=== PATIENT | male | born 1955 | race Caucasian/White ===

== ENCOUNTER 2017-02-16 06:06 | Inpatient (IN) | payer BC ==
--- NOTE | 2017-02-10 21:20 | HP ---
PREOPERATIVE HISTORY AND PHYSICAL: DATE OF ADMISSION/SURGERY: 02/16/17 DATE OF OFFICE VISIT: 02/01/17 ATTENDING PHYSICIAN/SURGEON: Dr. Jairon Meza. (DICTATED BY NAKUL PANCHAL) PROCEDURE: Right total knee replacement. CHIEF COMPLAINT: Right knee pain. HISTORY OF PRESENT ILLNESS: Kuldip Rucker is a 61-year-old male, who has a longstanding history of severe end-stage osteoarthritis of the right knee. He has tried and failed conservative treatment options including bracing, NSAIDs, physical therapy, and cortisone injection. He would like to proceed with right total knee replacement. This is scheduled for 02/16/[address] Meza and risks and benefits have been discussed with the patient. All of his questions have been answered and he would like to proceed with right total knee replacement. PAST MEDICAL HISTORY: 1. BPH. 2. Coronary arteriosclerosis. 3. Hyperlipidemia. 4. Kidney stone. PAST SURGICAL HISTORY: 1. Right foot surgery. 2. Back diskectomy. 3. Left carpal tunnel release. 4. Coronary stent. 5. Cataract bilaterally. 6. Knee arthroscopy bilaterally. MEDICATIONS: 1. Atorvastatin. 2. Glucosamine. ALLERGIES: No known drug allergies. FAMILY HISTORY: Unknown. 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 He denies tobacco, alcohol, or recreational drug use. REVIEW OF SYSTEMS: A 14-point review of systems was reviewed with the patient. It is positive for bilateral knee pain and left heel spur, but otherwise is negative for known anesthesia problems, negative for history of DVT. Negative for MRSA and hep C and HIV. The rest of the review of systems is negative and noncontributory. PHYSICAL EXAMINATION GENERAL: Well-developed, well-nourished, 61-year-old male in no acute distress. VITAL SIGNS: Height is 73, weight 225 pounds. Pulse 70, blood pressure is 142/ 89, temperature 94.9. BMI of 29.7. HEENT: Head is normocephalic, atraumatic. NECK: Supple with no palpable lymph nodes. PULMONARY: Lungs clear to auscultation bilaterally. No wheezes, rales, or rhonchi. CARDIO: Regular rate and rhythm. S1, S2. No murmurs, rubs, or gallops. No edema. ABDOMEN: Soft, nontender. Positive bowel sounds throughout. NEUROLOGIC: Alert and oriented x3. Cranial nerves II through XII are grossly intact. Sensation intact to light touch. MUSCULOSKELETAL: Right knee has range of motion from 10 degrees to 105 degrees of motion. There is slight medial tenderness. Nontender anteriorly, laterally, and posteriorly. MCL and LCL are stable. Thigh and calf are soft. The dorsalis pedis and posterior tibialis are 2+ bilaterally. DIAGNOSTIC STUDIES: X-rays from 12/30/16 did show [id number] osteoarthritic changes in the medial compartment of the right knee. IMPRESSION: A 61-year-old with right knee severe osteoarthritis. PLAN: The patient is scheduled to undergo a right total knee replacement with Dr. Meza on 02/16/17. He will return to the office 10 to 14 days postoperative for followup and suture removal. A prescription was prescribed to the patient's pharmacy for postoperative pain management. NAKUL PANCHAL [id number]/[facility] #: [id number] INOCENCIO
[~2017-02-16 06:06] MED LIST: Buffered Lidocaine 0.9% SYRIN* 5 ML/SYR SYRINGE ONE; Famotidine IV* 10 MG/ML 2 ML (20 mg) IV ONE; Famotidine IV* 10 MG/ML 2 ML (20 mg) ONE; Gabapentin CAP(*) 100 MG ONE; Gabapentin CAP(*) 300 MG ONE; Gabapentin CAP(*) 300 MG PO ONE; Metoclopramide TAB* 10 MG ONE; Metoclopramide TAB* 10 MG PO ONE; ceFAZolin 2 GM PREMIX(*) 2 GM/50 ML BAG IVPB ONE
[2017-02-16] MEDS ORDERED: Ketorolac INJ* 30 MG/ML 1 ML VIAL ONE (06:52)
[2017-02-16] MEDS ORDERED: Morphine PF AMP (0.5MG/ML)* 5 MG/10 ML AMP ONE (06:52)
[2017-02-16] MEDS ORDERED: Midazolam* 1 MG/ML 5 ML VIAL (5 MG) ONE (06:52)
[2017-02-16] MEDS ORDERED: Bupivacaine 0.5% SDV PF* 30 ML VIAL ONE ×2 (06:52→09:35)
[2017-02-16] MEDS ORDERED: fentaNYL* 50 MCG/ML 2 ML VIAL (100 MCG VIAL) ONE (06:52)
[2017-02-16] MEDS ORDERED: Propofol* 10 MG/ML 20 ML BTL IV PUSH ONE (06:52)
[2017-02-16] MEDS ORDERED: KETAMINE HCL* 50 MG/ML 10 ML VIAL ONE (06:52)
[2017-02-16] MEDS ORDERED: Ondansetron INJ* 2 MG/ML VIAL ONE ×2 (06:52→13:49)
[2017-02-16] MEDS ORDERED: Dexamethasone IV* 4 MG/ML 1 ML (4 MG) ONE (06:52)
[2017-02-16] MEDS ORDERED: Lidocaine 2% PF * 5 ML VIAL ONE (06:52)
[2017-02-16] MEDS ORDERED: Midazolam* 1 MG/ML 2 ML VIAL (2 MG) ONE (07:42)
[2017-02-16] MEDS ORDERED: Propofol* 500 MG/50 ML BTL ONE (07:52)
[2017-02-16] MEDS ORDERED: Bupivacaine 0.5% W/EPI SDV* 30 ML VIAL ONE (07:56)
[2017-02-16] MEDS ORDERED: Phenylephrine INJ* 10 MG/ML 1 ML VIAL (10 MG) ONE (08:04)
[2017-02-16] MEDS ORDERED: fentaNYL* 50 MCG/ML 2 ML VIAL (100 MCG VIAL) IV PRN (08:33)
[2017-02-16] MEDS ORDERED: Ondansetron INJ* 2 MG/ML VIAL IV PRN ×3 (08:33→10:35)
[2017-02-16] MEDS ORDERED: EPHEDrine (Pressors)* 50 MG/ML VIAL IV PUSH PRN (08:35)
[2017-02-16] MEDS ORDERED: diPHENhydraMINE IV* 50 MG/ML 1 ml VIAL (BENADRYL) IV PRN (08:35)
[2017-02-16] MEDS ORDERED: Ketorolac INJ* 30 MG/ML 1 ML VIAL IV PRN (08:35)
[2017-02-16] MEDS ORDERED: Lactated Ringers 500 ml BAG* 500 ML IV PRN (08:35)
[2017-02-16] MEDS ORDERED: oxyCODONE/Acetamin 5/325 MG* TAB PO PRN ×3 (08:35→10:35)
[2017-02-16] MEDS ORDERED: Naloxone* 0.4 MG/ML 1 ML VIAL IV PRN (08:40)
[2017-02-16] MEDS ORDERED: Ropivacaine* 300 MG in NS 0.9% 250 ML* 240 ML EPIDURAL SCH (09:00)
[2017-02-16] MEDS ORDERED: Morphine INJ* 2 MG/ML 1 ML SYRINGE IV PRN (10:35)
[2017-02-16] MEDS ORDERED: traZODone TAB* 50 MG TAB PO PRN (10:35)
--- NOTE | 2017-02-16 11:16 | RAD ---
Indication: Status post right knee bipolar arthroplasty. 2 views of the right knee demonstrates bipolar knee arthroplasty in satisfactory position. IMPRESSION: Bipolar knee arthroplasty in satisfactory position.
--- NOTE | 2017-02-16 14:56 | OP ---
DATE OF OPERATION: 02/16/17 - ROOM #343 DATE OF : 53 SURGICAL CARE: Right knee. SURGEON: Jairon Meza MD ASSISTANTS: NAKUL Ridley; and Peyton physician's inventory assistant student. ANESTHESIOLOGIST: Drew Bucio MD. ANESTHESIA: Spinal with Duramorph and epidural IV sedation. PRE-OP DIAGNOSIS: Severe arthritis of the right knee with some varus deformity. POST-OP DIAGNOSIS: Severe arthritis of the right knee with some varus deformity. OPERATIVE PROCEDURE: Right total knee replacement. COMPONENTS UTILIZED: Huy Persona knee, size 10 femur, 38 patella, size G tibia and a 14 articular surface. COMPLICATIONS: There were no complications. DRAINS: There were no drains. BLOOD LOSS: 200 mL. REPLACEMENT: Crystalloid fluids. OPERATIVE INDICATIONS: Severe arthritis of the right knee that is no longer responsive to nonoperative care and a right total knee replacement was recommended. DESCRIPTION OF PROCEDURE: The patient was brought to the operating room and placed on the operating room table in a supine position and then into the seated position for the administration of the spinal Duramorph and epidural. He returned to the supine position. A Mejias catheter was inserted. The right lower extremity was wrapped with a proximal thigh tourniquet and following these preparations, the knee was given a preliminary chlorhexidine prep and then a final ChloraPrep with the surgical care. After prepping, draping and sealing off, we did our universal protocol time-out confirming Kuldip Rucker and a plan for right total knee replacement and we all agreed and we proceeded. The surgical care was done without tourniquet until the clean-up and cementing phase and the knee was acutely flexed with the foot on a padded foot piece. The skin incision went from the medial aspect of the tibial tubercle to two finger-breadths proximal to the superior pole of the patella. Careful hemostasis was checked and achieved throughout the case utilizing electrocautery. The skin and subcu divided down to the prepatellar bursa and the knee was entered medial parapatellar dividing the soft tissues on the tibia down to the bone just medial to the tibial tubercle going up to the joint line and to the medial aspect of the patella and dividing the quad tendon at the junction of the rectus femoris and the vastus medialis, going 4 cm proximal to the superior pole of the patella staying as close to the vastus medialis as possible for good tendon healing. The knee had clear goldish synovial fluid that was abundant. The patella was made so that it could be everted. The anteromedial soft tissues on the tibia were elevated subperiosteally going around to the MCL and then to the posterior medial corner of the knee. The remainder of the medial meniscus was removed anteriorly. The infrapatellar fat pad was carefully excised and the patella was everted. There was complete eburnation of the bone on the medial femoral condyle, medial tibial plateau, large osteophytes medial tibial plateau, intercondylar notch, trochlea and medial femoral condyle. The lateral meniscus was carefully excised and careful hemostasis was checked and achieved in the region of the lateral geniculate. Osteophytes were removed from the intercondylar notch. The ACL and PCL were uplifted from their femoral origins and the tibia was made so that it could be subluxated forward from under the femur and the PCL was carefully excised with careful hemostasis while working posteriorly, especially. The distal anterior femur was exposed subperiosteally for referencing and measuring out. The proximal tibial cut was made first. Our goal here was to have a tibial surface so that it would have a slight posterior slope and be perpendicular to the long axis of the tibia removing about a centimeter to 12 mm laterally and just a couple of millimeters medially. After this cut was complete, the femoral intramedullary drill was utilized and the femur was suctioned to discourage embolization and the femoral guide was inserted with #1 with 6 degrees of valgus and the distal femoral cut was completed. We had nice extension gap 12 mm to 14 mm at this stage. The femur was then measured for a 10 and the femoral cuts, the anterior and posterior and chamfering were completed. We then finished removal of the lateral meniscus, posterior horn medial meniscus, carefully preserving the MCL, osteophytes, posterior medial femoral condyle and lateral femoral condyle. At this stage, we had nice ligamentous balance in 90 degrees of flexion with a 12 mm to 14 mm block as well. The femur was completed with the intercondylar cutout for a size 10 with nice tight fit and anchoring holes were made. The tibia was completed for a size G. The knee was articulated and extended with a G tibia, 14 articular surface and the 10 femur with full knee extension, stable ligaments in extension, stable ligaments in 90 degrees of flexion. The femoral canal was cleaned x6 with saline, suctioned empty and then the bone plug inserted. The patella was everted and measured for a cut. The patella was cut flat, measured for a 38, three drill holes were made and these were undercut. A lateral release was not necessary. The knee was then cleaned completely in extension with pulsed saline 2 L to 3 L and cleaning the gutters posteriorly. Careful hemostasis once again checked and achieved. The leg was then exsanguinated. The tourniquet elevated to 275. The knee was then flexed, retractors were put into position and all bony surfaces were cleaned with the pulsed saline to encourage optimal cement interdigitation at the cementing phase. The cement was mixed and the components were cemented into position, patella followed by tibia followed by femur. Each component was impacted, excess cement was removed and the knee was articulated and extended during the final hardening. The tourniquet was then deflated, we checked everywhere for retained cement, we checked posteriorly. The pericapsular tissues were infiltrated with Marcaine 0.5 % with epinephrine posteromedially, medially, laterally. Careful hemostasis checked and achieved with electrocautery during the closure and several irrigations with saline during the closure. The quadriceps tendon reapproximated with interrupted #1 Polysorb in [id number] fashion down to the medial retinaculum. Two blood collection drains were brought out through superolateral suprapatellar pouch. The distal closure was done with 0 Polysorb , the bursa closed with 0 Polysorb and then 3-0 Polysorb and then more superficial subcu and then sharmaine on the skin. The skin was washed and dried and covered with Betadine soaked release after the sharmaine followed by sterile gauze, sterile Webril, cryotherapy cuff, ABD pads, further Webril, and then a 6- inch Antony bandage loosely applied. The knee was extended completely and flexed 6 to 8 times during closure and it was flexed completely. The patient was then returned to the hospital bed in the recovery room in stable and satisfactory condition, having tolerated the procedure very well. [id number]/[facility] #: [id number] MTDD
[2017-02-16] MEDS: ceFAZolin VIAL(*) 1 GM in NS 0.9% 50 ML* 50 ML IVPB SCH ×3 (15:41→20:00)
[2017-02-16] MEDS ORDERED: DiMENhydriNATE IV* 50 MG/ML VIAL IV PUSH ONE (19:00)
[2017-02-16] MEDS ORDERED: Scopolamine 1.5 mg* PATCH TRANSDERM SCH (19:00)
[2017-02-16] MEDS: Docusate CAP* 100 MG PO SCH (21:48)
[2017-02-16] MEDS: Atorvastatin* 40 MG TAB PO SCH (21:48)
[2017-02-16] MEDS: Ferrous Sulfate TAB* 325 MG PO SCH (21:49)
[2017-02-17] MEDS ORDERED: diPHENhydraMINE IV* 50 MG/ML 1 ml VIAL (BENADRYL) IV PRN (00:41)
[2017-02-17] MEDS: ceFAZolin VIAL(*) 1 GM in NS 0.9% 50 ML* 50 ML IVPB SCH ×2 (04:07→12:08)
[2017-02-17] MEDS ORDERED: Ketorolac INJ* 30 MG/ML 1 ML VIAL ONE (05:27)
[2017-02-17 06:17] LABS: Hematocrit 35 % (42-52); Hemoglobin 11.7 g/dl (14.0-18.0)
[2017-02-17 06:26] LABS: BUN/Creatinine Ratio 20.2 (8-20); Calcium 8.5 mg/dL (8.6-10.3); EGFR African American 111.4 (>60); EGFR Non-African American 86.6 (>60); Potassium 3.8 mmol/L (3.5-5.0)
[2017-02-17] MEDS: oxyCODONE/Acetamin 5/325 MG* TAB PO PRN ×4 (08:42→20:54)
[2017-02-17] MEDS: Pyridoxine TAB* 50 MG PO SCH (08:42)
[2017-02-17] MEDS: Ascorbic Acid TAB* 500 MG PO SCH (08:42)
[2017-02-17] MEDS: Ferrous Sulfate TAB* 325 MG PO SCH ×2 (08:42→20:53)
[2017-02-17] MEDS: Aspirin TAB* 325 MG PO SCH (08:42)
[2017-02-17] MEDS: Vitamin THERAPEUTIC TAB PO SCH (08:42)
[2017-02-17] MEDS: Cholecalciferol TAB* 1000 UNITS PO SCH (08:42)
[2017-02-17] MEDS: Docusate CAP* 100 MG PO SCH ×2 (08:42→20:54)
[2017-02-17] MEDS: Coenzyme Q10 (NF) ** ENTER STREGNTH IN LABEL DIRECTIONS PO SCH (08:46)
[2017-02-17] MEDS: OMEGA 3 FATTY ACIDS PO SCH (08:46)
[2017-02-17] MEDS: Atorvastatin* 40 MG TAB PO SCH (16:51)
[2017-02-17] MEDS: Magnesium Hydroxide LIQ* 30 ML UDC PO PRN (20:54)
[2017-02-18] MEDS: oxyCODONE/Acetamin 5/325 MG* TAB PO PRN ×5 (01:02→22:12)
[2017-02-18] MEDS: oxyCODONE TAB* 5 MG TAB PO PRN ×2 (05:17→09:35)
[2017-02-18 07:36] LABS: Hematocrit 31 % (42-52); Hemoglobin 10.6 g/dl (14.0-18.0)
[2017-02-18] MEDS: Magnesium Hydroxide LIQ* 30 ML UDC PO PRN (08:39)
[2017-02-18] MEDS: Coenzyme Q10 (NF) ** ENTER STREGNTH IN LABEL DIRECTIONS PO SCH (08:40)
[2017-02-18] MEDS: OMEGA 3 FATTY ACIDS PO SCH (08:40)
[2017-02-18] MEDS: Ferrous Sulfate TAB* 325 MG PO SCH ×2 (08:41→21:15)
[2017-02-18] MEDS: Aspirin TAB* 325 MG PO SCH (08:41)
[2017-02-18] MEDS: Ascorbic Acid TAB* 500 MG PO SCH (08:41)
[2017-02-18] MEDS: Cholecalciferol TAB* 1000 UNITS PO SCH (08:41)
[2017-02-18] MEDS: Docusate CAP* 100 MG PO SCH ×2 (08:41→21:15)
[2017-02-18] MEDS: Pyridoxine TAB* 50 MG PO SCH (08:41)
[2017-02-18] MEDS: Vitamin THERAPEUTIC TAB PO SCH (08:41)
--- NOTE | 2017-02-18 09:35 | PN ---
Progress Note - Progress Note SOAP: Subjective: []Patient seen at bedside, having increased pain in his knee today compared to yesterday. Feels he will need therapy sessions today and will shoot for discharge home tomorrow. Denies SOB, CP or dizziness. Objective: [] Vital Signs Temp 98.1 F 02/18/17 07:16 Pulse 63 02/18/17 07:16 Resp 20 02/18/17 08:00 BP 128/68 02/18/17 07:16 Pulse Ox 96 02/18/17 08:00 Intake & Output 02/17/17 02/18/17 02/18/17 18:59 06:59 18:59 Intake Total 1768 1025 120 Output Total 850 1150 500 Balance 918 -125 -380 Intake: IV Fluids 1483 LR 1483 IVPB 60 ABX - CEFAZOLIN 60 Oral 225 1025 120 Output: Urine 850 1150 500 Other: # Bowel Movements 0 Laboratory Results - last 24 hr 02/18/17 06:29 Hgb 10.6 L Hct 31 L Right knee dressings were removed, scant old bloody drainage noted, no active bleeding, wound benign hemovac site dry calf non tender +DF/PF right ankle neuro intact distally wound was cleansed with soapy water, dried, and with new betadine soaked telfa placed with 4x4's and CANDY wraps Assessment: []s/p Right total knee arthroplasty POD #1 Plan: []PT/OT WBAT ASA 325 mg for DVT prophylaxis Discharge home tomorrow
[2017-02-18] MEDS: Atorvastatin* 40 MG TAB PO SCH (17:18)
[2017-02-19] MEDS: oxyCODONE/Acetamin 5/325 MG* TAB PO PRN ×3 (02:24→10:20)
[2017-02-19] MEDS: Magnesium Hydroxide LIQ* 30 ML UDC PO PRN (06:33)
[2017-02-19 07:23] LABS: Hematocrit 31 % (42-52); Hemoglobin 10.6 g/dl (14.0-18.0)
[2017-02-19 07:51] VITALS: BP 125/68
--- NOTE | 2017-02-19 07:57 | PN ---
Progress Note - Progress Note SOAP: Subjective: 61 y/o male s/p R TKA by Dr. Jaime on 02/16/2017. Patient eager for DC home, pain controlled with Percocet. Working well with PT, VSS, afebrile overnight. Objective: General- Sitting in bed comfortably, NAD, AO MSK- Dressing removed, incision D/C/I, no drainage noted, dressed with bend soaked gauze and CANDY, + DF/PF b/l, neg homans sign b/l, no edema noted. Vital Signs Temp 98.5 F 02/19/17 07:37 Pulse 70 02/19/17 07:37 Resp 12 02/19/17 07:37 BP 125/68 02/19/17 07:37 Pulse Ox 97 02/19/17 07:37 Intake & Output 02/18/17 02/19/17 02/19/17 18:59 06:59 18:59 Intake Total 840 980 Output Total 1600 1950 Balance -760 -970 Intake: Oral 840 980 Output: Urine 1600 1950 Assessment: 61 y/o male s/p R TKA by Dr. Jaime on 02/16/2017. Plan: - D/C to home today with VNS - ASA for DVT prophyl - Continue PT - Percocet for pain - F/U with DR. jaime within 4-6 weeks Active Medications Generic Name Dose Route Start Last Admin Trade Name Freq PRN Reason Stop Dose Admin Ascorbic Acid 1,000 mg 02/17/17 09:00 02/18/17 08:41 Vitamin C Tab* PO 1,000 mg DAILY LIBAN Administration Aspirin 325 mg 02/17/17 09:00 02/18/17 08:41 Aspirin Tab* PO 325 mg DAILY LIBAN Administration Atorvastatin Calcium 40 mg 02/16/17 17:00 02/18/17 17:18 Lipitor* PO 40 mg 1700 LIBAN Administration Cholecalciferol 5,000 units 02/17/17 09:00 02/18/17 08:41 Vitamin D Tab* PO 5,000 units DAILY LIBAN Administration Coenzyme Q10 1 cap 02/17/17 09:00 02/18/17 08:40 Coenzyme Q10 (Nf) PO Not Given DAILY LIBAN Diphenhydramine HCl 25 mg 02/17/17 00:41 Benadryl Iv* IV Q6H PRN itching Docusate Sodium 100 mg 02/16/17 21:00 02/18/17 21:15 Colace Cap* PO 100 mg BID LIBAN Administration Ferrous Sulfate 325 mg 02/16/17 21:00 02/18/17 21:15 Ferrous Sulfate Tab* PO 325 mg BID LIBAN Administration Lactated Ringer's 1,000 mls @ 100 mls/hr 02/16/17 11:00 02/17/17 10:56 Lactated Ringers 1000 Ml Bag* IV 100 mls/hr PER RATE LIBAN Administration Magnesium Hydroxide 30 ml 02/16/17 10:35 02/19/17 06:33 Milk Of Magnesia Liq* PO 30 ml Q6H PRN Administration constipation Morphine Sulfate 2 mg 02/16/17 10:35 Morphine Inj (Syringe)* IV Q2H PRN PAIN Multivitamins 1 tab 02/17/17 09:00 02/18/17 08:41 Theragran Tab* PO 1 tab DAILY LIBAN Administration Tonica-3 Fatty Acids 2,500 mg 02/17/17 09:00 02/18/17 08:40 [Fish Oil] 2,500 Mg PO Not Given DAILY LIBAN Oxycodone HCl 10 mg 02/16/17 10:35 02/18/17 09:35 Roxycodone Tab* PO 10 mg Q4H PRN Administration PAIN Oxycodone/Acetaminophen 1 tab 02/16/17 10:35 Percocet 5/325 Tab* PO Q4H PRN PAIN Oxycodone/Acetaminophen 2 tab 02/17/17 00:41 02/19/17 06:32 Percocet 5/325 Tab* PO 2 tab Q4H PRN Administration PAIN Pharmacy Profile Note 1 note 02/19/17 18:30 Scopolomine Patch Remove* PATCH OFF Q72H [facility] Pyridoxine HCl 100 mg 02/17/17 09:00 02/18/17 08:41 Vitamin B6 Tab* PO 100 mg DAILY LIBAN Administration Scopolamine 1 patch 02/16/17 19:00 02/16/17 18:25 Transderm-Scop 1.5 Mg Patch* TRANSDERM 1 patch Q72H LIBAN Administration Trazodone HCl 25 mg 02/16/17 10:35 Desyrel Tab* PO BEDTIME PRN insomnia
[2017-02-19] MEDS: Aspirin TAB* 325 MG PO SCH (07:58)
[2017-02-19] MEDS: Ascorbic Acid TAB* 500 MG PO SCH (07:58)
[2017-02-19] MEDS: Coenzyme Q10 (NF) ** ENTER STREGNTH IN LABEL DIRECTIONS PO SCH (07:59)
[2017-02-19] MEDS: Docusate CAP* 100 MG PO SCH (07:59)
[2017-02-19] MEDS: Cholecalciferol TAB* 1000 UNITS PO SCH (07:59)
[2017-02-19] MEDS: OMEGA 3 FATTY ACIDS PO SCH (08:00)
[2017-02-19] MEDS: Pyridoxine TAB* 50 MG PO SCH (08:00)
[2017-02-19] MEDS: Vitamin THERAPEUTIC TAB PO SCH (08:00)
[2017-02-19] MEDS: Ferrous Sulfate TAB* 325 MG PO SCH (08:00)
[2017-02-19] MEDS ORDERED: Scopolomine PATCH Remove* 1 NOTE MISC PATCH OFF SCH (18:30)
--- NOTE | 2017-02-19 23:20 | DS ---
DISCHARGE SUMMARY: DATE OF ADMISSION: 02/16/17 DATE OF DISCHARGE: 02/19/17 CHIEF COMPLAINT: 1. Right knee pain. 2. BPH. 3. Coronary atherosclerosis. 4. Elevated cholesterol. 5. History of kidney stones. DISCHARGE DIAGNOSES: 1. Right total knee replacement. 2. Benign prostatic hyperplasia. 3. Coronary atherosclerosis. 4. Elevated cholesterol. 5. History of kidney stones. PROCEDURE: Right total knee replacement. CONSULTATIONS: 1. Physical Therapy. 2. Occupational Therapy. BRIEF HISTORY: Mr. Rucker is a very pleasant 61-year-old gentleman with severe end- stage degenerative osteoarthritis of the right knee, who failed conservative treatment and now elected to undergo right total knee replacement on 02/16/[address] Meza. HOSPITAL COURSE: Mr. Rucker was admitted to [facility] on 02/16/17 where he underwent a right total knee replacement. Postoperatively, he recovered on the surgical short stay unit. On postoperative day 1, Mejias was removed and the patient was voiding on his own without difficulty. He advanced appropriately with physical and occupational therapy. His DVT prophylaxis was managed with Lovenox while in house and with aspirin at discharge. His labs and vital signs remain stable. By postoperative day 3, he was orthopedically and medically stable for discharge to go home with home services. PHYSICAL EXAMINATION: General: Well appearing. No acute distress, sitting in bed, alert and oriented. Vital Signs: On date of discharge, temperature 98.5, pulse 70, respirations 12, blood pressure 125/68, and 97% pulse ox on room air. Musculoskeletal: Dressing was removed. Incision was clean, dry, and intact. No drainage was noted. Dressing was replaced with Betadine-soaked gauze and an Antony wrap. Positive dorsiflexion and plantar flexion bilaterally. Negative Homans' signs bilaterally. No edema noted. LABORATORY DATA: On the date of discharge include an H and H of 10.6 and 31. DISCHARGE MEDICATIONS: 1. Vitamin C 1000 mg p.o. daily. 2. Aspirin 325 mg p.o. daily. 3. Atorvastatin/Lipitor 40 mg p.o. daily. 4. Vitamin D3 supplementation 5000 International Units p.o. daily. 5. Coenzyme Q10 100 mg p.o. daily. 6. Colace 100 mg p.o. b.i.d. 7. Glucosamine 750 mg p.o. b.i.d. 8. Aleve 1 tablet b.i.d. p.r.n. 9. Fish oil 2500 mg p.o. daily. 10. MiraLAX 1 dose as needed p.r.n. for constipation. 11. Vitamin B6 100 mg p.o. daily. 12. Percocet 5/325 one to two tablets every 4 hours as needed for pain. CONDITION ON DISCHARGE: Stable. DISCHARGE INSTRUCTIONS: Mr. Rucker is a very pleasant 61-year-old male, postoperative day 3, status post right total knee replacement, which was uncomplicated. He is orthopedically and medically stable to be discharged home with home services. His labs and vital signs are stable. He will restart his home medications. He will take aspirin 325 mg p.o. daily for DVT prophylaxis. He will remain weightbearing as tolerated on the right lower extremity. He will have home physical therapy twice a week. He will take Percocet for pain control and MiraLAX as needed to prevent constipation. He will follow up with Dr. Meza in approximately 4 to 6 weeks for incision check. He will contact us if any questions or concerns about his incision such as redness or drainage and will go to the ER immediately should he develop any shortness of breath or chest pain. NAKUL LOPEZ [id number]/[facility] #: [id number] MTDD
== END 2017-02-19 10:40 | disposition home health service (06) | DRG 302 ==
LOC: AA 06:06 → SSU 15:25
PROVIDERS: ADMIT Orthopaedic Surgery; ATTEND Orthopaedic Surgery
PROC: 0SRC0JA Replacement of Right Knee Joint with Synthetic Substitute, Uncemented, Open Approach (ICD-10-PCS; 2017-02-16)
PROC: 30233H0 Transfusion of Autologous Whole Blood into Peripheral Vein, Percutaneous Approach (ICD-10-PCS; principal; 2017-02-16 07:30)
DX: M17.11 Unilateral primary osteoarthritis, right knee (principal); D62 Acute posthemorrhagic anemia; N40.0 Benign prostatic hyperplasia without lower urinary tract symptoms; I25.10 Atherosclerotic heart disease of native coronary artery without angina pectoris; E78.00 Pure hypercholesterolemia, unspecified; E78.5 Hyperlipidemia, unspecified; M21.161 Varus deformity, not elsewhere classified, right knee; M25.761 Osteophyte, right knee; Z87.442 Personal history of urinary calculi; Z79.82 Long term (current) use of aspirin; Z95.5 Presence of coronary angioplasty implant and graft; Z98.42 Cataract extraction status, left eye; Z98.41 Cataract extraction status, right eye
CPT/HCPCS: 36415; 80048; 85014; 85018; 86850; 86900; 86901; A9270-GY; C1776; J0690; J1100; J1240; J1885; J2250; J2405; J2704; J2795; J3010

== ENCOUNTER 2018-12-18 02:16 | Emergency (ER) | payer BC ==
[2018-12-18] MEDS ORDERED: Morphine 4 MG/ML VIAL (1 ml) 4 MG/ML VIAL IV ONE (02:33)
[2018-12-18] MEDS ORDERED: Ketorolac INJ* 30 MG/ML 1 ML VIAL IV PUSH ONE (02:33)
[2018-12-18] MEDS ORDERED: Ondansetron INJ* 2 MG/ML VIAL IV ONE (02:33)
[2018-12-18] MEDS ORDERED: NS 0.9% 1000 ML** 1,000 ML IV ONE (02:33)
--- NOTE | 2018-12-18 02:33 | ED ---
Abdominal Pain/Male - HPI Summary HPI Summary: A 63 y/o male presents to [facility] with a chief complaint of left sided flank pain since 01:00 today. He reports nausea but denies vomiting. He reports that he had herniated disc surgery by Dr. Hope, but this feels different. He rates his pain as a 9/10 in severity. He has a Hx of hernias. - History of Current Complaint Chief Complaint: EDFlankPain Stated Complaint: "SEVERE ABD/FLANK PAIN" PER PT Time Seen by Provider: 12/18/18 02:30 Hx Obtained From: Patient Onset/Duration: Sudden Onset, Lasting Hours, Still Present Timing: Constant, Lasting Hours Severity Initially: Severe Severity Currently: Severe Pain Intensity: 9 Pain Scale Used: 0-10 Numeric Location: Flank - left Radiates: No Character: Other: - severe Aggravating Factor(s): Nothing Alleviating Factor(s): Nothing Associated Signs And Symptoms: Positive: Nausea. Negative: Vomiting - Allergies/Home Medications Allergies/Adverse Reactions: Allergies Allergy/AdvReac Type Severity Reaction Status Date / Time No Known Allergies Allergy Verified 02/16/17 06:25 PMH/Surg Hx/FS Hx/Imm Hx Endocrine/Hematology History: Denies: Hx Diabetes, Hx Thyroid Disease Cardiovascular History: Reports: Hx Coronary Artery Disease - STENT- PLACEMENT AT [facility]-7 YEARS AGO, Other Cardiovascular Problems/Disorders - ONCE IN A WHILE HEAVY CHEST-CARDIOLOGY AWARE- STATES NOT NEW Denies: Hx Hypertension, Hx Pacemaker/ICD Respiratory History: Denies: Hx Asthma, Hx Chronic Obstructive Pulmonary Disease (COPD), Other Respiratory Problems/Disorders GI History: Denies: Hx Ulcer History: Reports: Hx Kidney Stones - PASSED A STONE LAST WEEK Musculoskeletal History: Reports: Hx Arthritis - HANDS, FEET, BACK Denies: Other Musculoskeletal History Sensory History: Reports: Hx Cataracts - BILATERAL, Hx Contacts or Glasses - GLASSES Denies: Hx Hearing Aid Opthamlomology History: Reports: Hx Cataracts - BILATERAL, Hx Contacts or Glasses - GLASSES Psychiatric History: Denies: Hx Panic Disorder - Surgical History Surgery Procedure, Year, and Place: right foot surgery 2010. carpal tunnel left 7 2011. HEART CATH W/ STENT PLACED RIGHT CIRCUMFLEX Jun Group MULTI-LINK ULTRA (SAFE TO 3T 3.3T/M AND UNDER 2.0 W/KG) 2007. HERNIA REPAIR. LUMBAR SURGERY FOR PINCHED [id number] Hx Anesthesia Reactions: Yes - FOOT SURGERY-NAUSEA FOR 1 DAY OR SO AFTER Infectious Disease History: No Infectious Disease History: Denies: Hx Clostridium Difficile, Hx Hepatitis, Hx Human Immunodeficiency Virus (HIV), Traveled Outside the [place] in Last 30 Days - Family History Known Family History: Negative: Blood Disorder - Social History Alcohol Use: None Substance Use Type: Reports: None Smoking Status (MU): Never Smoked Tobacco Have You Smoked in the Last Year: No Review of Systems Negative: Fever Positive: Abdominal Pain, Nausea. Negative: Vomiting Positive: flank pain All Other Systems Reviewed And Are Negative: Yes Physical Exam - Summary Physical Exam Summary: Appearance: Appears colicky, Well-nourished, lying in bed comfortably Skin: Warm, dry, no obvious rash Eyes: sclera anicteric, no conjunctival pallor ENT: mucous membranes moist, pharynx appears normal Neck: Supple, nontender Respiratory: Clear to auscultation, no signs of respiratory distress Cardiovascular: Normal S1, S2. No murmurs. Normal distal pulses in tibial and radial bilaterally. Abdomen: Soft, nontender, normal active bowel sounds present Musculoskeletal: Normal, Strength/ROM Intact Neurological: A&Ox3, awake and alert, mentation is normal, speech is fluent and appropriate Psychiatric: affect is normal, does not appear anxious or depressed Triage Information Reviewed: Yes Vital Signs On Initial Exam: Initial Vitals Temp Pulse Resp BP Pulse Ox 96.5 F 51 20 152/82 97 12/18/18 02:17 12/18/18 02:17 12/18/18 02:17 12/18/18 02:17 12/18/18 02:17 Vital Signs Reviewed: Yes Diagnostics - Vital Signs Vital Signs Temp Pulse Resp BP Pulse Ox 12/18/18 02:17 96.5 F 51 20 152/82 97 - Laboratory Result Diagrams: 12/18/18 02:43 12/18/18 02:43 Lab Statement: Any lab studies that have been ordered have been reviewed, and results considered in the medical decision making process. - CT abdomen/pelvis CT Interpretation Completed By: Radiologist Summary of CT Findings: . 1. Resolution of mid right ureteral calculus since . 2. New right UPJ calculus measuring 7 x 7 x 4 mm with right obstructive. uropathy. 3. Nonobstructing right renal calculi are noted. 4. 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 ED physician has reviewed this imaging report. Abdominal Pain Male Course/Dx - Course Course Of Treatment: A 63 y/o male presents to [facility] with a chief complaint of left sided flank pain since 01:00 today. He reports nausea but denies vomiting. He reports that he had herniated disc surgery by Dr. Hope, but this feels different. He rates his pain as a 9/10 in severity. He has a Hx of hernias. The physical exam revealed that the patient appeared colicky. In the ED course the patient was given Toradol IV, Zofran IV, Morphine IV and Sodium chloride IV. Bloodwork and chemistries obtained and are WNL. CT abdomen/pelvis impression: 1. Resolution of mid right ureteral calculus since 01/31/2014. 2. New right UPJ calculus measuring 7 x 7 x 4 mm with right obstructive. uropathy. 3. Nonobstructing right renal calculi are noted. 4. 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 ED physician has reviewed this imaging report. The patient will be discharged home with presciptions for Zofran, Percocet and Flomax. He was instructed to follow up with Dr. Foley. The patient is agreeable with this plan. - Diagnoses Provider Diagnoses: Renal colic Discharge - Sign-Out/Discharge Documenting (check all that apply): Patient Departure - DC Patient Received Moderate/Deep Sedation with Procedure: No - Discharge Plan Condition: Improved Disposition: HOME Prescriptions: Ondansetron ODT TAB* [Zofran 4 MG Odt TAB*] 8 mg PO Q6H PRN #12 tab.odt PRN Reason: Nausea oxyCODONE/Acetamin 5/325 MG* [Percocet 5/325 TAB*] 1 tab PO Q4H PRN #20 tab MDD 6 tabs PRN Reason: Pain Tamsulosin CAP* [Flomax CAP*] 0.4 mg PO BEDTIME #10 cap Patient Education Materials: Kidney Stones (ED), How to Strain Your Urine (ED) Referrals: Raj Foley MD [Medical Doctor] - If Needed Additional Instructions: Take 2 OTC alleve (naprosyn) twice daily until you pass the stone, and supplement that with the percocet as needed for pain. Contact Dr. Foley's office on Wednesday and make an appt with him for later in the week. Hopefully the stone will pass in the next several days but if not Dr. Foley can help you; sometimes a surgical procedure is needed. - Billing Disposition and Condition Condition: IMPROVED Disposition: Home - Attestation Statements Document Initiated by Karthik: Yes Documenting Scribe: Rubin Jones Provider For Whom Karthik is Documenting (Include Credential): Nishant Soriano MD Scribe Attestation: I, Rubin Jones, scribed for Nishant Soriano MD on 12/19/18 at 1320. Scribe Documentation Reviewed: Yes Provider Attestation: The documentation as recorded by the Rubin bell accurately reflects the service I personally performed and the decisions made by me, Nishant Soriano MD Status of Scribe Document: Viewed
[2018-12-18 02:53] LABS: ABS Basophils 0 10^3/ul (0-0.2); ABS Eosinophils 0.1 10^3/ul (0-0.6); ABS Monocytes 0.5 10^3/ul (0-0.8); ABS Neutrophils 3.1 10^3/ul (1.5-7.7); ABS Nucleated RBC 0 10^3/ul; Eosinophil % 1.9 %; Hematocrit 41 % (36-46); Hemoglobin 13.8 g/dL (14.0-18.0); Lymphocyte % 34.7 %; Mean Corpuscular HGB Conc 33 g/dL (31-36); Mean Corpuscular Hemoglobin 30 pg (27-31); Mean Corpuscular Volume 89 fL (80-94); Mean Platelet Volume 9.8 fL (7.4-10.4); Nucleated Red Blood Cells % 0.1; Platelet Count 145 10^3/uL (150-450); Red Blood Count 4.66 10^6 /uL (4.18-5.48); Red Cell Distribution Width 14 % (10.5-15); White Blood Count 5.7 10^3/uL (3.5-10.8)
[2018-12-18 03:09] LABS: Albumin/Globulin Ratio 1.8 (1-3); Calcium 8.9 mg/dL (8.6-10.3); EGFR African American 96.6 (>60); EGFR Non-African American 79.8 (>60); Globulin 2.2 g/dL (2-4); Potassium 3.7 mmol/L (3.5-5.0); Total Bilirubin 0.5 mg/dL (0.2-1.0); Total Protein 6.2 g/dL (6.4-8.9)
[2018-12-18] MEDS ORDERED: PROCHLORPERAZINE INJ 5 MG/ML 2 ML VIAL IV ONE (04:54)
[2018-12-18 05:43] VITALS: BP 125/63
== END 2018-12-18 04:45 | disposition home or self-care (01) ==
LOC: ED 02:16
DX: N20.0 Calculus of kidney (principal); Z87.442 Personal history of urinary calculi; I25.10 Atherosclerotic heart disease of native coronary artery without angina pectoris
CPT/HCPCS: 36415; 74176; 80053; 85025; 96361; 96374; 96375; 96376; 99282; J0780; J1885; J2270; J2405

== ENCOUNTER → 2018-12-22 05:43 | Day surgery (SDC) | payer BC ==
--- NOTE | 2018-12-20 19:46 | HP ---
CC: Dr. Vazquez; Leni Malave NP, [facility]; Dr. Jairon Meza * ADMITTING HISTORY AND PHYSICAL: DATE OF ADMISSION: 12/22/18 ADMITTING DIAGNOSES: 1. Calculus, right proximal ureter. 2. Right hydronephrosis. PLANNED PROCEDURE: Right retrograde and right stent insertion (probably to be followed in the near future by lithotripsy). SURGEON: Dr. Wolfe. HISTORY OF PRESENT ILLNESS: Kuldip Rucker is a 63-year-old gentleman with a history of recurrent renal calculi. He had been in the emergency room a few days ago because of severe right flank pain and nausea and vomiting and was noted to have an approximately 7-mm calculus in the proximal right ureter with right hydronephrosis. He had been started on Flomax 0.4 mg once a day and was seen in my office and was noted to have persistent, approximately 7-mm calculus in the proximal right ureter with right hydronephrosis and absent right ureteral jet suggesting a complete obstruction. He is now being brought in for urgent right stent insertion likely to be followed in the near future by lithotripsy. PAST MEDICAL HISTORY: Significant for: 1. Coronary artery disease. 2. High cholesterol. PAST SURGICAL HISTORY: Significant for right total knee replacement in 2017, back surgery 6 to 7 years ago, and angioplasty and coronary stent insertion. ( He is scheduled for a left total knee replacement in January of [address] Meza) . MEDICATIONS: On admission: 1. Atorvastatin 80 mg daily. 2. Aspirin 81 mg daily. 3. Flomax 0.4 mg daily. 4. Multiple supplements. ALLERGIES AND INTOLERANCES: CODEINE. SOCIAL HISTORY: Smoking history: He is a nonsmoker. REVIEW OF SYSTEMS: He is otherwise in excellent health. There is no history of diabetes mellitus or any other major systemic illness. PHYSICAL EXAMINATION GENERAL: Reveals a pleasant, healthy-appearing, middle-aged gentleman. VITAL SIGNS: Blood pressure is 150/80, pulse 73 per minute and regular, temperature 97.8, oxygen saturation 97% on room air. LUNGS: Clear bilaterally. CARDIOVASCULAR: Regular rate and rhythm. S1, S2. ABDOMEN: Soft without masses. There is mild right flank tenderness. IMPRESSION: A 63-year-old gentleman with calculus in the right proximal ureter with evidence of complete obstruction on sonogram. PLAN: Plan is for right stent insertion to be followed in the near future by lithotripsy. [id number]/[facility] #: [id number] INOCENCIO
[~2018-12-22 05:43] MED LIST changes: -Buffered Lidocaine 0.9% SYRIN* 5 ML/SYR SYRINGE ONE; +Buffered Lidocaine 1% SYRIN* 1 ML/SYRINGE INTRADERM ONE; +Dexamethasone IV* 4 MG/ML 1 ML (4 MG) IV SLOW PU ONE; +Dexamethasone IV* 4 MG/ML 1 ML (4 MG) ONE; +DiMENhydriNATE IV* 50 MG/ML VIAL IV PUSH PRN; -Gabapentin CAP(*) 100 MG ONE; -Gabapentin CAP(*) 300 MG ONE; -Gabapentin CAP(*) 300 MG PO ONE; +Gentamicin ADULT (*) 160 MG in NS 0.9% 100 ML* 100 ML IVPB STA; +Iohexol 180 (CONTRAST) 10 ML SDV IV ONE; +Lactated Ringers 1000 ML Bag* 1,000 ML IV SCH; +Lidocaine 2% PF * 5 ML VIAL ONE; -Metoclopramide TAB* 10 MG ONE; -Metoclopramide TAB* 10 MG PO ONE; +Midazolam* 1 MG/ML 2 ML VIAL (2 MG) ONE; +Naloxone* 0.4 MG/ML 1 ML VIAL IV PRN; +Ondansetron INJ* 2 MG/ML VIAL ONE; +Propofol* 10 MG/ML 20 ML BTL ONE; +Scopolamine 1.5 mg* PATCH ONE; +Scopolamine 1.5 mg* PATCH TRANSDERM SCH; -ceFAZolin 2 GM PREMIX(*) 2 GM/50 ML BAG IVPB ONE; +cefTRIAXone(*) 2 GM ADDV.VIAL IVPB ONE; +fentaNYL* 50 MCG/ML 2 ML VIAL (100 MCG VIAL) IV PRN; +fentaNYL* 50 MCG/ML 2 ML VIAL (100 MCG VIAL) ONE
[2018-12-22 10:28] VITALS: BP 151/88
--- NOTE | 2018-12-22 11:20 | OP ---
CC: Dr. Vazquez * DATE OF OPERATION: 12/22/18 - [facility] DATE OF : 53 SURGEON: Angel Wolfe MD. ANESTHESIOLOGIST: Dr. Dick. ANESTHESIA: General. PRE-OP DIAGNOSES: 1. Right hydronephrosis. 2. Obstructing calculus, right proximal ureter. POST-OP DIAGNOSES: 1. Right hydronephrosis. 2. Obstructing calculus, right proximal ureter. OPERATIVE PROCEDURE: 1. Cystoscopy. 2. Right retrograde pyelogram. 3. Right ureteral calculus manipulation. 4. Right stent insertion. COMPLICATIONS: None. POSTOPERATIVE CONDITION: Stable. STENTS USED: 7-Czech stent, right ureter. OPERATIVE FINDINGS: 1. Moderately enlarged prostate with some irregularity of the mucosa involving the prostatic urethra. 2. Complete obstruction, right ureter secondary to a calculus just below the right ureteropelvic junction and proximal right ureter. INDICATION: Kuldip Rucker is a 63-year-old gentleman who was evaluated for an obstructing calculus in the right proximal ureter. He is being brought in for urgent right stent insertion, to be followed in the near future by lithotripsy procedure. DESCRIPTION OF PROCEDURE: After induction of general anesthesia, the patient was placed in dorsal lithotomy position. Sequential compression devices were in place and functioning. Initial cystoscopy revealed a normal-appearing urethra. The prostate was moderately enlarged and the mucosa involving the prostatic urethra had an irregular, almost papillary appearance, especially in the dorsal aspect. The bladder was entered and examined. There was clear efflux noted from the left orifice. There was no efflux noted from the right orifice suggesting a complete obstruction. There was a small area above the right orifice where the mucosa was slightly hyperemic, but no definite or suspicious lesions were noted. A guidewire was introduced into the right ureter. Retrograde pyelogram revealed right hydronephrosis. The calculus would be noted on fluoroscopy and the wire was advanced to the level of the calculus and an open-ended catheter advanced to the level just below the calculus in an effort to try to manipulate it proximally. Once this was done, a 7-Czech stent was introduced in position under fluoroscopy with good proximal and distal positioning obtained. There were significant drainage of urine noted from the right kidney after the stent placement. The bladder was emptied. Patient tolerated the procedure satisfactorily and was transferred back to recovery area in stable condition. [id number]/[facility] #: [id number] MTDD
== END | disposition home or self-care (01) ==
LOC: OR 05:43
PROVIDERS: ATTEND Urology
DX: N13.2 Hydronephrosis with renal and ureteral calculous obstruction (principal); I25.10 Atherosclerotic heart disease of native coronary artery without angina pectoris; Z95.5 Presence of coronary angioplasty implant and graft; E78.00 Pure hypercholesterolemia, unspecified; E78.5 Hyperlipidemia, unspecified
CPT/HCPCS: 74018; 76000; A9270-GY; C1876; J0696; J1100; J1580; J2250; J2405; J2704; J3010

== ENCOUNTER → 2019-01-02 10:54 | Day surgery (SDC) | payer BC ==
[~2019-01-02 10:54] MED LIST changes: -Dexamethasone IV* 4 MG/ML 1 ML (4 MG) IV SLOW PU ONE; -DiMENhydriNATE IV* 50 MG/ML VIAL IV PUSH PRN; +Furosemide IV* 10 MG/ML 2 ML VIAL (20 MG) ONE; -Gentamicin ADULT (*) 160 MG in NS 0.9% 100 ML* 100 ML IVPB STA; -Iohexol 180 (CONTRAST) 10 ML SDV IV ONE; -Midazolam* 1 MG/ML 2 ML VIAL (2 MG) ONE; +Midazolam* 1 MG/ML 5 ML VIAL (5 MG) ONE; +Ondansetron INJ* 2 MG/ML VIAL IV PRN; -Scopolamine 1.5 mg* PATCH TRANSDERM SCH; +oxyCODONE/Acetamin 5/325 MG* TAB PO PRN
[2019-01-02 14:41] VITALS: BP 146/82
--- NOTE | 2019-01-03 01:03 | OP ---
CC: Dr. Vazquez * DATE OF OPERATION: 01/02/19 - [facility] DATE OF : 53 SURGEON: Dr. Angel Wolfe. ANESTHESIOLOGIST: Dr. Bucio. ANESTHESIA: General. PRE-OP DIAGNOSIS: Right renal calculus. POST-OP DIAGNOSIS: Right renal calculus. OPERATIVE PROCEDURE: Shock wave lithotripsy of right renal calculus. INDICATIONS: Kuldip Rucker is a 63-year-old gentleman who had undergone urgent right stent insertion for an obstructing calculus in the right proximal ureter. He is now being brought in for lithotripsy. COMPLICATIONS: None. POSTOPERATIVE CONDITION: Stable. DESCRIPTION OF PROCEDURE: After induction of general anesthesia, the patient was placed on the lithotripsy table in supine position. The calculus, which was now adjacent to the proximal coil of the right stent was visualized and shock-wave lithotripsy was commenced at a rate of 60 shocks per minute. After the initial 300 shocks, there was a pause in lithotripsy for several minutes in an effort to minimize any potential trauma to the kidney. Lithotripsy was then resumed and a total of 2000 shocks were administered and good fragmentation was observed. The patient tolerated the procedure satisfactorily and was transferred back to the recovery area in stable condition. [id number]/[facility] #: [id number] MTDD
== END | disposition home or self-care (01) ==
LOC: OR 10:54
PROVIDERS: ATTEND Urology
DX: N20.1 Calculus of ureter (principal); N13.30 Unspecified hydronephrosis; I25.10 Atherosclerotic heart disease of native coronary artery without angina pectoris; E78.00 Pure hypercholesterolemia, unspecified; Z79.82 Long term (current) use of aspirin; Z88.5 Allergy status to narcotic agent
CPT/HCPCS: 74018; A9270-GY; J0696; J1100; J1940; J2250; J2405; J2704; J3010

== ENCOUNTER 2019-02-07 05:54 | Inpatient (IN) | payer BC ==
--- NOTE | 2019-01-16 15:41 | HP ---
HISTORY AND PHYSICAL: DATE OF ADMISSION: 02/07/19 He is having a left total knee replacement at [facility] on 02/07/19. CHIEF COMPLAINT: Left knee pain. HISTORY OF PRESENT ILLNESS: The patient has had left knee pain and limitations of walking over the last couple of years. He had a right total knee replacement in February 2017, which he has done well with. Because of the continued pain and problems with the left knee, his desire is to proceed with a left total knee replacement and we recommended it. PAST MEDICAL HISTORY: He had a cardiac stent 9 to 10 years ago. 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 He does not have chest pain. He does not have shortness of breath. He is able to walk up 2 flights of stairs without chest pain, without shortness of breath. He does not have history of pulmonary embolism or DVT. No cancer history. No bronchitis or pneumonia. His last cardiac stress test was on a treadmill 18 months ago. The patient walks slower than he used to because of his severe left knee arthritis. On the stairs, he needs to use the railing. He has been okay sleeping. No past history of hypertension or diabetes. His stomach has been okay. No history of hepatitis. He has had nephrolithiasis and recent treatment with Dr. Wolfe in the last couple of months. No urinary tract infection. MEDICATIONS: His daily meds include: 1. Aspirin 81 mg. 2. Atorvastatin 80 mg. 3. Multiple daily vitamins. 4. Glucosamine. 5. Vitamin D3. 6. Coenzyme Q. 7. B complex. 8. Ibuprofen 600 mg up to 3 times a day when needed. ALLERGIES: No allergies. FAMILY HISTORY: Negative for cancer. Positive for cardiac and diabetes. SOCIAL HISTORY: He does not smoke. 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 REVIEW OF SYSTEMS: As noted above regarding GI, hepatitis, kidneys, and . PHYSICAL EXAMINATION GENERAL: Well-nourished, well-developed, not acutely distressed. VITAL SIGNS: 74 inches in height, 229 pounds. Pulse 78, blood pressure 140/80. EXTREMITIES: Slight limp on the left. The left knee has varus. The left knee extension 0, flexion 125. Right knee extension 0, flexion 120, and a well- healed surgical scar. Further on the left knee, stable MCL and LCL, normal Akira and posterior drawer. There is no large effusion. The left posterior tibial pulse is 2+ and no swelling bilaterally of the legs, ankles, and feet. IMPRESSION: Severe arthritis of the left knee. PLAN: The plan is for a left total knee replacement on 02/07/19. His questions were answered and complications were reviewed. [id number]/[facility] #: [id number] INOCENCIO
[~2019-02-07 05:54] MED LIST changes: -Dexamethasone IV* 4 MG/ML 1 ML (4 MG) ONE; -Famotidine IV* 10 MG/ML 2 ML (20 mg) IV ONE; -Famotidine IV* 10 MG/ML 2 ML (20 mg) ONE; -Furosemide IV* 10 MG/ML 2 ML VIAL (20 MG) ONE; -Lactated Ringers 1000 ML Bag* 1,000 ML IV SCH; -Lidocaine 2% PF * 5 ML VIAL ONE; -Midazolam* 1 MG/ML 5 ML VIAL (5 MG) ONE; -Naloxone* 0.4 MG/ML 1 ML VIAL IV PRN; -Ondansetron INJ* 2 MG/ML VIAL IV PRN; -Ondansetron INJ* 2 MG/ML VIAL ONE; -Propofol* 10 MG/ML 20 ML BTL ONE; -Scopolamine 1.5 mg* PATCH ONE; +Tranexamic Acid 1,000 MG in NS 0.9% 50 ML* (outpatient use) IV SCH; -cefTRIAXone(*) 2 GM ADDV.VIAL IVPB ONE; -fentaNYL* 50 MCG/ML 2 ML VIAL (100 MCG VIAL) IV PRN; -fentaNYL* 50 MCG/ML 2 ML VIAL (100 MCG VIAL) ONE; -oxyCODONE/Acetamin 5/325 MG* TAB PO PRN
--- OUTSIDE RECORDS SUMMARY | 2019-02-07 05:58 | XMS REPORT | Continuity of Care Document ---
:1955 External Reference #:[id number] Author Name Jesica Faye Care Team Providers Name Role Phone Horacio Vazquez MD Primary Care Physician Unavailable Payers Date Identification Numbers Payment Provider Subscriber Policy Number: [id number] [employer] Kuldip Rucker PayID: [id number] [address] [address] [place] [address] Advance Directives Description No Information Available Problems Active Problems Provider Date History and physical examination, follow-up Bob Hope M.D. Onset: 2013 Low back pain Bob Hope M.D. Onset: 03/13/2015 Localized, primary osteoarthritis Jairon Meza M.D. Onset: 03/09/2018 Arthroplasty of knee Jairon Meza M.D. 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 10/18/2017 500mg before dental Capsules work Ibuprofen 1 by mouth up to 90tabs M17.12 Jairon Meza M.D. 09/21/2016 600mg Tablets three times a day if needed Aspir-81 1 by mouth every Unknown 81mg Tablets DR day Multi-Day 1 by mouth every Unknown Plus Iron day Tablets Atorvastatin Calcium 1 by mouth every Unknown 40mg day Tablets Glucosamine Unknown 750mg Tablets Vitamin D3 Maximum 1 by mouth every Unknown Strength day 5000Unit Capsules Co Q 10 1 by mouth every Unknown 100mg Capsules day Flaxseed/Fish/Borage Unknown Oils Capsules B-Complex Unknown Aleve Unknown History Medications Oxycodone-Acetaminophen 1-2 tabs by 90tabs Vik 02/10/2017 - 5-325mg Tablets mouth every 4 MD Kavya 04/13/2017 hours for pain Cyclobenzaprine HCL Take 1 Tablet 60tabs 724.2 Bob 03/13/2015 - 10mg Tablets By Mouth Two Noni Hope 02/18/2016 Times Daily as Needed For Spasm -- Maximum Daily Dose Of 2 Per Day Ibuprofen 1 by mouth 90tabs Bob 12/18/2014 - 600mg Tablets three times a Noni Hope 07/20/2016 day after meals Ibuprofen 1 by mouth 90tabs Bob 10/10/2014 - 600mg Tablets three times a Noni Hope 12/18/2014 day after meals Ibuprofen 90tabs V67.09 Bob 09/03/2014 - 600mg Tablets Noni Hope 10/10/2014 Tramadol HCL 1 by mouth 90tabs 722.10 Bob 06/21/2014 - 50mg Tablets every 6 hours Noni Hope 02/18/2016 as needed pain Amitriptyline HCL 1 by mouth 30tabs 722.10 Bob 06/21/2014 - 50mg Tablets every night at Noni Hope 02/18/2016 bedtime Medrol (Antonio) as directed 1tabs Bob 06/15/2014 - 4mg Tablets called rx per Noni Hope 07/12/2014 Dr. Harrison 1-2 po Q6h prn 60tabs Bob 06/08/2014 - 50mg Tablets pain Noni Hope 07/12/2014 Percocet 1 by mouth 90tabs 722.10 Bob 06/06/2014 - 10-325mg Tablets every 6 hours Noni Hope 07/12/2014 as needed pain Atorvastatin Calcium 1 by mouth 90tabs Unknown - 40mg Tablets every day 02/18/2016 Hydrocodone-Acetaminophen 1 tab by mouth 120tabs Unknown - 10-325mg every 6 hours 07/12/2014 Tablets as needed Cyclobenzaprine HCL one by mouth 30tabs Unknown - 10mg Tablets three times a 03/13/2015 day as needed spasm Ibuprofen as needed Unknown - 200mg Capsules 09/03/2014 Medications Administered in Office Medication SIG Qnty Indications Ordering Provider Date Depomedrol 40MG Soco Wilhelm M.D. 10/13/2018 Injection Records Fee Jairon Meza M.D. 05/18/2018 Injection Depomedrol 40MG Jairon Meza M.D. 03/09/2018 Injection Depomedrol 40MG Jairon Meza M.D. 10/18/2017 Injection Depomedrol 20MG Jairon Meza M.D. 04/14/2017 Injection Depomedrol 40MG Jairon Meza M.D. 09/21/2016 Injection Depomedrol 40MG Jairon Meza M.D. 09/21/2016 Injection Depomedrol 80MG Jairon Meza M.D. 11/02/2012 Injection Immunizations Description No Information Available Vital Signs Date Vital Result Comment 01/16/2019 8:16am Height 74 inches 6'2" Weight 229.00 lb Heart Rate 78 /min BP Systolic 140 mmHg BP Diastolic 80 mmHg Respiratory Rate 18 /min Pain Level 2 BMI (Body Mass Index) 29.4 kg/m2 10/13/2018 12:59pm Height 74 inches 6'2" Weight 230.00 lb Heart Rate 72 /min BP Systolic 124 mmHg BP Diastolic 78 mmHg Body Temperature 97.4 F Pain Level 6 BMI (Body Mass Index) 29.5 kg/m2 09/14/2018 8:35am Height 74 inches 6'2" Weight 230.00 lb BP Systolic 128 mmHg BP Diastolic 80 mmHg Respiratory Rate 20 /min Pain Level 6 BMI (Body Mass Index) 29.5 kg/m2 03/09/2018 10:24am Height 74 inches 6'2" Weight 230.00 lb Heart Rate 61 /min BP Systolic 146 mmHg BP Diastolic 76 mmHg Body Temperature 97.4 F BMI (Body Mass Index) 29.5 kg/m2 10/18/2017 8:53am Height 73 inches 6'1" Heart Rate 69 /min BP Systolic 130 mmHg BP Diastolic 70 mmHg Respiratory Rate 16 /min Body Temperature 97.0 F Pain Level 3 04/14/2017 10:25am Height 73 inches 6'1" Weight 225.00 lb Respiratory Rate 18 /min Body Temperature 97.6 F Pain Level 0 BMI (Body Mass Index) 29.7 kg/m2 03/22/2017 1:40pm Height 73 inches 6'1" Weight 225.00 lb Heart Rate 76 /min BP Systolic 121 mmHg BP Diastolic 83 mmHg Respiratory Rate 16 /min Body Temperature 97.8 F Pain Level 5 BMI (Body Mass Index) 29.7 kg/m2 02/01/2017 9:29am Height 73 inches 6'1" Weight 225.00 lb Heart Rate 70 /min BP Systolic 142 mmHg BP Diastolic 89 mmHg Body Temperature 94.9 F BMI (Body Mass Index) 29.7 kg/m2 12/30/2016 2:35pm Height 73 inches 6'1" Weight 225.00 lb Heart Rate 66 /min BP Systolic 143 mmHg BP Diastolic 81 mmHg Body Temperature 97.3 F Pain Level 3 BMI (Body Mass Index) 29.7 kg/m2 09/21/2016 8:38am Height 74 inches 6'2" Weight 228.00 lb Respiratory Rate 16 /min Pain Level 0 BMI (Body Mass Index) 29.3 kg/m2 07/20/2016 1:47pm Height 74 inches 6'2" Weight 228.00 lb Heart Rate 68 /min BP Systolic 130 mmHg BP Diastolic 70 mmHg Pain Level 8 BMI (Body Mass Index) 29.3 kg/m2 02/19/2016 2:42pm Height 74 inches 6'2" Weight 230.00 lb Heart Rate 68 /min BP Systolic Sitting 114 mmHg BP Diastolic Sitting 76 mmHg Respiratory Rate 16 /min Pain Level 8 BMI (Body Mass Index) 29.5 kg/m2 03/13/2015 2:52pm Height 73 inches 6'1" Weight 223.00 lb Heart Rate 84 /min BP Systolic Sitting 140 mmHg BP Diastolic Sitting 90 mmHg Pain Level 2 back BMI (Body Mass Index) 29.4 kg/m2 09/03/2014 10:18am Height 73 inches 6'1" Weight 225.00 lb Heart Rate 70 /min BP Systolic Sitting 140 mmHg BP Diastolic Sitting 80 mmHg Pain Level 0 BMI (Body Mass Index) 29.7 kg/m2 08/13/2014 8:54am Height 73 inches 6'1" Weight 225.00 lb Heart Rate 76 /min BP Systolic Sitting 130 mmHg BP Diastolic Sitting 80 mmHg Pain Level 4 R lower leg BMI (Body Mass Index) 29.7 kg/m2 07/12/2014 8:57am Height 73 inches 6'1" Weight 215.00 lb Heart Rate 82 /min BP Systolic Sitting 150 mmHg BP Diastolic Sitting 88 mmHg Pain Level 3 back/R leg BMI (Body Mass Index) 28.4 kg/m2 06/21/2014 8:59am Height 73 inches 6'1" Weight 209.00 lb Heart Rate 76 /min BP Systolic Sitting 150 mmHg BP Diastolic Sitting 80 mmHg Body Temperature 96.0 F Pain Level 5 R leg & hip BMI (Body Mass Index) 27.6 kg/m2 06/06/2014 1:32pm Height 73 inches 6'1" Weight 218.00 lb Heart Rate 86 /min BP Systolic Sitting 130 mmHg BP Diastolic Sitting 100 mmHg Pain Level 10 Back & R Leg BMI (Body Mass Index) 28.8 kg/m2 Results Test Date Facility Test Result H/L Range Note Inr/Protime 02/01/2017 [facility] Inr 0.90 N 0.89-1.[address] [place] [address] [phone] Laboratory test 02/01/2017 [facility] Partial 30.7 seconds N 26.0-36.3 [address] [place] [address] PTT [phone] Type & Screen 02/01/2017 [facility] Patient Blood A Positive N [address] [place] [address] [phone] Antibody Screen NEGATIVE N Urine Culture And 02/01/2017 [facility] Urine SEE RESULT [address] Culture BELOW [place], [place] [id number] [phone] Tisseel 10 ML 06/12/2014 [facility] Tisseel 10ML [id number] 4 , [address] <[place] [address] NOTE> [phone] CBC No Diff 06/11/2014 [facility] White Blood 6.9 10^3/uL N 4.8-[address] Count 0.8 [place] [address] [phone] Red Blood Count 5.38 10^6/uL N 4.0-5.4 Hemoglobin 16.1 g/dL N 14.0-18.0 Hematocrit 47 % N 42-52 Mean Corpuscular Volume 88 fL N 80-94 Mean Corpuscular Hemoglobin 30 pg N 27-31 Mean Corpuscular HGB Conc 34 g/dL N 31-36 Red Cell Distribution Width 13 % N 10.5-15 Platelet Count 200 10^3/uL N 150-450 Mean Platelet Volume 10 um3 N 7.4-10.4 Basic Metabolic Panel 06/11/2014 [facility] Sodium 137 mmol/L N 133-[address] [place] [address] [phone] Potassium 3.9 mmol/L N 3.7-5.6 Chloride 103 mmol/L N 101-111 Co2 Carbon Dioxide 25 mmol/L N 22-32 Anion Gap 9 mmol/L N 2-11 Glucose 117 mg/dL High 70-100 Blood Urea Nitrogen 15 mg/dL N 6-24 Creatinine 1.06 mg/dL N 0.67-1.17 BUN/Creatinine Ratio 14.2 N 8-20 Calcium 9.6 mg/dL N 8.6-10.3 Egfr Non- 71.5 N >60 Egfr 92.0 N >60 7 CBC Auto Diff 01/31/2014 [facility] White Blood 10.8 10^3/uL N 4.8-10.[address] [place] [address] [phone] Red Blood Count 4.98 10^6/uL N 4.0-5.4 Hemoglobin 14.9 g/dL N 14.0-18.0 Hematocrit 44 % N 42-52 Mean Corpuscular Volume 88 fL N 80-94 Mean Corpuscular Hemoglobin 30 pg N 27-31 Mean Corpuscular HGB Conc 34 g/dL N 31-36 Red Cell Distribution Width 14 % N 10.5-15 Platelet Count 169 10^3/uL N 150-450 Mean Platelet Volume 10 um3 N 7.4-10.4 Abs Neutrophils 8.0 10^3/uL High 1.5-7.7 Abs Lymphocytes 1.9 10^3/uL N 1.0-4.8 Abs Monocytes 0.8 10^3/uL N 0-0.8 Abs Eosinophils 0.1 10^3/uL N 0-0.6 Abs Basophils 0 10^3/uL N 0-0.2 Abs Nucleated RBC 0 10^3/uL N Granulocyte % 73.8 % N 38-83 Lymphocyte % 17.2 % Low 25-47 Monocyte % 7.7 % N 1-9 Eosinophil % 0.9 % N 0-6 Basophil % 0.4 % N 0-2 Nucleated Red Blood Cells % 0 N Comp Metabolic Panel 01/31/2014 [facility] Sodium 139 mmol/L N 133-145 [address] [place] [address] [phone] Potassium 4.1 mmol/L N 3.7-5.6 Chloride 103 mmol/L N 101-111 Co2 Carbon Dioxide 30 mmol/L N 22-32 Anion Gap 6 mmol/L N 2-11 Glucose 90 mg/dL N 70-100 Blood Urea Nitrogen 17 mg/dL N 6-24 Creatinine 1.06 mg/dL N 0.67-1.17 BUN/Creatinine Ratio 16.0 N 8-20 Calcium 9.4 mg/dL N 8.6-10.3 Total Protein 7.3 g/dL N 6.4-8.9 Albumin 4.4 g/dL N 3.2-5.2 Globulin 2.9 g/dL N 2-4 Albumin/Globulin Ratio 1.5 N 1-3 Total Bilirubin 0.60 mg/dL N 0.2-1.0 Alkaline Phosphatase 62 U/L N 34-104 Alt 28 U/L N 7-52 Ast 20 U/L N 13-39 Egfr Non- 71.5 N >60 Egfr 92.0 N >60 8 Urinalysis Profile 01/31/2014 [facility] Urine Color Yellow N [address] [place] [address] [phone] Urine Appearance Clear N Urine Specific [place] 1.011 N 1.010-1.030 Urine Esterase Negative N Negative Urine Nitrate Negative N Negative Urine Urobilinogen Negative E.U./dL N Negative Urine Protein Negative mg/dL N Negative Urine pH 5.5 N 5-9 Urine Blood 2+ Abnormal Negative Urine Ketones Negative mg/dL N Negative Urine Bilirubin Negative N Negative Urine Glucose Negative mg/dL N Negative Urine Microscopic 01/31/2014 [facility] Urine RBC 1+ (<3 N None Seen [address] /hpf) [place] [address] [phone] Urine Mucus Present /lpf N Absent Bacteria Urine 1+ N None Seen 1 [id number] 2 [id number] 3 SEE RESULT BELOW Name: KULDIP RUCKER : [address]: Jairon Meza MD Acct: [id number] Unit: [id number] AGE: 61 Location: [facility] Re02/01/17 SEX: M Status: REG REF SPEC: [id number] DAY[place]: 02/01/17-1315 [facility] DR: Jairon Meza MD REQ: [id number] RECD: 02/01/17367 STATUS: COMP _ SOURCE: URINE SPDESC: ORDERED: Urine Culture COMMENTS: [id number] QUERIES: Urine Source: Clean Catch Procedure Result Reported Site Urine Culture Final 02/02/17- 1418 ML No Growth (<1,000 CFU/mL) * ML - MA[facility] LAB ([facility]) . END OF REPORT * ML=Testing performed at Main Lab DEPARTMENT OF PATHOLOGY, [address] [place] [address] Bennett Abdi M.D. Director [facility] # [id number] 4 RIGHT L 2/3 INTERVERTEBRAL DISC DISPLACEMENT 5 [id number] TISSEEL 10ML TRANSFUSED 06/12/14 1204 6 SDS 06/12/14 7 Because ethnic data is not always readily available, this report includes an eGFR for both -Americans and non- Americans. The National Kidney Disease Education Program (NKDEP) does not endorse the use of the MDRD equation for patients that are not between the ages of 18 and 70, are , have extremes of body size, muscle mass, or nutritional status, or are non- or non-. According to the National Kidney Foundation, irrespective of diagnosis, the stage of the disease is based on the level of kidney function: Stage Description GFR(mL/min/1.73 m(2)) 1 Kidney damage with normal or decreased GFR 90 2 Kidney damage with mild decrease in GFR 60-89 3 Moderate decrease in GFR 30-59 4 Severe decrease in GFR 15-29 5 Kidney failure <15 (or dialysis) 8 Because ethnic data is not always readily available, this report includes an eGFR for both -Americans and non- Americans. The National Kidney Disease Education Program (NKDEP) does not endorse the use of the MDRD equation for patients that are not between the ages of 18 and 70, are , have extremes of body size, muscle mass, or nutritional status, or are non- or non-. According to the National Kidney Foundation, irrespective of diagnosis, the stage of the disease is based on the level of kidney function: Stage Description GFR(mL/min/1.73 m(2)) 1 Kidney damage with normal or decreased GFR 90 2 Kidney damage with mild decrease in GFR 60-89 3 Moderate decrease in GFR 30-59 4 Severe decrease in GFR 15-29 5 Kidney failure <15 (or dialysis) Procedures Date Code Description Status 10/13/2018 17963 Inject Tendon Sheath Or Ligament Aponeurosis Eg Plantar Completed Fascia 03/09/2018 10304 Inject/Drain Joint/Bursa Major W/O US Completed 10/18/2017 66513 Inject/Drain Joint/Bursa Major W/O US Completed 04/14/2017 41848 Inject/Drain Joint/Bursa Major W/O US Completed 02/16/2017 85046 TKR Total Knee Replacement Completed 02/16/2017 14643 TKR Total Knee Replacement Completed 02/01/2017 94362 EKG, Interpretation Only Completed 09/21/201610547 Inject/Drain Joint/Bursa Major W/O US Completed 06/12/2014 55899 Laminotomy W/Decomp NRV RT,One Interspace,Lumbar Completed 11/02/2012 24307 Xray Knee 3 Views Completed 11/02/2012 79378 Rad Exam; Knee, Ap&L Completed 11/02/201259158 Inject/Drain Joint/Bursa Major W/O US Completed 03/24/2012 69420 Carpal Tunnel Release Completed 03/24/2012 79428 Carpal Tunnel Release Completed Encounters Type Date Location Provider Dx Diagnosis Office Visit 10/13/2018 Orthopedic Soco Wilhelm, M65.4 Radial styloid 1:00p Services Of Noni hallmanosynovitis [Zamudio] Office Visit 09/14/2018 Jewel Meza M.D. M17.12 Unilateral primary 8:45a Services Of osteoarthritis, left C.M.A. knee Z96.651 Presence of right artificial knee joint M25.561 Pain in right knee Office Visit 03/09/2018 10:30a Orthopedic Jairon Meza Z96.651 Presence of right Services Of M.D. artificial knee C.M.A. joint M17.12 Unilateral primary osteoarthritis, left knee Office Visit 10/18/2017 9:15a Orthopedic Jairon Meza Z47.1 Aftercare Services Of M.D. following joint C.M.A. replacement surgery Z96.651 Presence of right artificial knee joint M17.12 Unilateral primary osteoarthritis, left knee Office Visit 04/14/2017 Jweel Meza M17.12 Unilateral primary 10:30a Services Of M.D. osteoarthritis, left C.M.A. knee Z96.651 Presence of right artificial knee joint Office Visit 12/30/2016 Jim Dunbar7.12 Unilateral primary 2:45p Services Of M.D. osteoarthritis, left C.M.A. knee M17.11 Unilateral primary osteoarthritis, right knee S83.412A Sprain of medial collateral ligament of left knee, init Office Visit 09/21/2016 Jim Dunbar7.12 Unilateral primary 8:45a Services Of M.D. osteoarthritis, left C.M.A. knee M17.11 Unilateral primary osteoarthritis, right knee Office Visit 07/20/2016 Orthopedic Jairon Meza M17.11 Unilateral primary 2:00p Services Of M.D. osteoarthritis, right C.M.A. knee M25.462 Effusion, left knee Office Visit 02/19/2016 3:00p Orthopedic Vik M77.32 Calcaneal spur, Services Of Noni Horowitz left foot C.M.A. M76.62 Achilles tendinitis, left leg Office Visit 03/13/2015 Neurosurgery Bob 724.2 Lumbago 3:00p Services Of Christo Hope M.D. 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 Plan of Treatment Future Appointment(s):03/08/2019 8:15 am - Jairon Meza M.D. at [facility] Curt.M.Charito02/07/2019 7:30 am - NAKUL Wan at [facility] C.MGinegr02/07/2019 7:30 am - Jairon Meza M.D. at [facility] C.M.AKoki
[2019-02-07] MEDS ORDERED: Lactated Ringers 1000 ML Bag* 1,000 ML IV SCH (06:00)
[2019-02-07] MEDS ORDERED: Gabapentin CAP(*) 300 MG PO ONE (06:00)
[2019-02-07] MEDS ORDERED: Gabapentin CAP(*) 300 MG ONE (06:16)
[2019-02-07] MEDS ORDERED: ceFAZolin 2 GM PREMIX in ORs 2 GM/50 ML BAG IVPB ONE (06:16)
[2019-02-07] MEDS ORDERED: Buffered Lidocaine 1% SYRIN* 1 ML/SYRINGE INTRADERM ONE (06:17)
[2019-02-07] MEDS ORDERED: Midazolam* 1 MG/ML 2 ML VIAL (2 MG) ONE (07:08)
[2019-02-07] MEDS ORDERED: fentaNYL* 50 MCG/ML 2 ML VIAL (100 MCG VIAL) ONE (07:08)
[2019-02-07] MEDS ORDERED: ROPIVACAINE 5 MG/ML 30 ML BTL (0.5%) ONE (07:14)
[2019-02-07] MEDS ORDERED: Lidocaine 2% PF * 5 ML VIAL ONE ×2 (07:14→07:47)
[2019-02-07] MEDS ORDERED: Dexmedetomidine* 200 MCG/2 ML 2 ML VIAL ONE (07:27)
[2019-02-07] MEDS ORDERED: Bupivacaine 0.5% W/EPI SDV* 30 ML VIAL ONE (07:32)
[2019-02-07] MEDS ORDERED: Bupivacaine 0.5% SDV PF* 30ML VIAL ONE (07:47)
[2019-02-07] MEDS ORDERED: EPHEDrine (Pressors)* 50 MG/ML VIAL ONE (08:07)
[2019-02-07] MEDS ORDERED: Propofol* 10 MG/ML 20 ML BTL ONE ×2 (08:08→10:51)
[2019-02-07] MEDS ORDERED: KETAMINE HCL* 50 MG/ML 10 ML VIAL ONE (08:09)
[2019-02-07] MEDS ORDERED: Propofol* 500 MG/50 ML BTL ONE (08:09)
[2019-02-07] MEDS ORDERED: Dexamethasone IV* 4 MG/ML 1 ML (4 MG) ONE (08:17)
[2019-02-07] MEDS ORDERED: Acetaminophen TAB* 325 MG PO PRN (08:58)
[2019-02-07] MEDS ORDERED: HYDROmorphone INJ1* 1 MG/ML SYRINGE IV PRN (08:58)
[2019-02-07] MEDS ORDERED: oxyCODONE TAB* 5 MG TAB PO PRN ×2 (08:58→11:26)
[2019-02-07] MEDS ORDERED: Naloxone* 0.4 MG/ML 1 ML VIAL IV PRN (08:58)
[2019-02-07] MEDS ORDERED: Ondansetron INJ* 2 MG/ML VIAL IV PRN ×2 (08:58→11:26)
[2019-02-07] MEDS ORDERED: Ketorolac INJ* 30 MG/ML 1 ML VIAL IV PRN (08:58)
[2019-02-07] MEDS ORDERED: Scopolamine 1.5 mg* PATCH ONE (09:01)
[2019-02-07] MEDS ORDERED: diPHENhydraMINE PO* 25 MG PO PRN (11:26)
[2019-02-07] MEDS ORDERED: Magnesium Hydroxide LIQ* 30 ML UDC PO PRN (11:26)
[2019-02-07] MEDS ORDERED: Morphine 4 MG/ML VIAL (1 ml) 4 MG/ML VIAL IV PRN (11:26)
[2019-02-07] MEDS ORDERED: Cyclobenzaprine TAB* 10 MG PO PRN (11:26)
[2019-02-07] MEDS ORDERED: diPHENhydraMINE IV* 50 MG/ML 1 ml VIAL (BENADRYL) IV PRN (11:26)
[2019-02-07] MEDS ORDERED: Bisacodyl SUPP* 10 MG SUPP PR PRN (11:26)
[2019-02-07] MEDS: Ondansetron ODT TAB* 4 MG PO PRN (14:50)
[2019-02-07] MEDS: Acetaminophen TAB* 325 MG PO SCH ×2 (14:51→22:03)
[2019-02-07] MEDS: traMADol TAB* 50 MG PO PRN ×2 (14:51→22:04)
[2019-02-07] MEDS: ceFAZolin 1 GM ADVAN(*) 1 GM in NS 0.9% 50 ML* 50 ML IVPB SCH ×2 (15:45→23:27)
--- NOTE | 2019-02-07 16:27 | OP ---
CC: Dr. Horacio Vazquez OPERATIVE REPORT: DATE OF OPERATION: 02/07/19 DATE OF : 53 SURGICAL CARE: Left knee. SURGEON: Jairon Meza MD. ASSISTANTS: 1. NAKUL Wan 2. Rachel Edwards, surgical resident. ANESTHESIA: Left femoral adductor canal block and spinal with IV sedation. PRE-OP DIAGNOSIS: Left knee severe arthritis, especially in the medial compartment with some varus m alalignment. POST-OP DIAGNOSIS: Left knee severe arthritis, especially in the medial compartment with some varus malalignment. OPERATIVE PROCEDURE: Left total knee replacement. IMPLANTS: The Huy Persona knee posterior stabilized type was utilized. All components were cemen girish; a left 10 femur, 38 patella, a left G tibia, and a 10 articular surface. COMPLICATIONS: There were no complications. DRAINS: There were no drains. BLOOD LOSS: 200 mL. REPLACEMENT: Crystalloid fluids. INDICATIONS: Severe arthritis of the left knee. His right total knee replacement was done just abou t 2 years ago and he has been doing well with that. DESCRIPTION OF PROCEDURE: After the block was administered in the holding area, the patient was brou ght to the operating room and placed on the operating room table in the supine position and then seat ed position for administration of spinal anesthetic. In supine position, a Mejias catheter was insert ed. The foot pulse was noted to be 2+. The left proximal thigh was wrapped with a tourniquet. The left leg was then given a preliminary chlorhexidine prep and then a formal ChloraPrep from the tourni quet to the tips of the toes. After prepping, draping, and sealing off, we did our universal protoco l time-out confirming Kuldip Rucker and the plan for a left total knee replacement. We all agreed and we proceeded. The surgical care was done mostly without tourniquet with the hip and left knee acute ly flexed with the left foot on a padded footpiece in a position to keep the knee acutely flexed all the way to the hip. Skin incision went from 2 fingerbreadths proximal to the superior pole of the pa tella to the medial aspect of the tibial tubercle. Careful hemostasis was checked and achieved throug hout the case utilizing electrocautery. After the time-out, skin incision was done, skin and subcu d ivided down to the prepatellar bursa. We entered the knee medial parapatellar. On the tibia, we wer e 2 cm medial to the tibial tubercle up to the joint line and then the quad mechanism was divided at the junction of the rectus femoris and the vastus medialis staying as close to the vastus medialis mu scle as possible, but in the tendon and medial parapatellar. The knee had clear straw-colored synovi al fluid. The anteromedial soft tissues on the tibia were elevated subperiosteally going around to th e deep MCL and then to the posteromedial corner of the knee. The patient had osteophyte medial femor al condyle, complete loss of bone medial tibial plateau, and osteophyte on medial tibial plateau as w ell. The remains of the medial meniscus anteriorly were carefully excised. The ACL and PCL were car efully uplifted from their femoral origins and the tibia was gradually made so that it could be sublu xated forward from under the femur. The posterior cruciate ligament was removed in its entirety and great care taken especially working on the posterior side of the PCL. The lateral meniscus was caref ully excised. The distal anterior femur was exposed subperiosteally for referencing and measuring an d then osteophytes were also removed from the intercondylar notch. At this point, we had nice exposu re. The proximal tibial cut was made first. Our goal here was to have a tibial surface that would b e perpendicular to the long axis of the tibia and have a slight posterior slope removing a couple mil limeters from the medial side of the tibia and a centimeter to 12 mm from the lateral side. The femo ral intramedullary drill was then utilized. The femoral canal was entered so that the femur could be cut distally. The femoral intramedullary canal was suctioned to discourage embolization then or lat er. The distal femoral cutting guide was applied on 1 with 6 degrees of valgus for the left and the distal femoral cut was completed. Our extension gap was excellent with a 10-mm block at this stage. The femur was then measured for a size 10 and the distal femoral cuts were completed, anterior, poste rior, and chamfer. After this, we completed removal of the posterolateral femoral condyle and medial femoral condyle where there were osteophytes, finished removal of the posteromedial meniscus careful ly preserving the MCL. The femur was then completed with the intercondylar cutout. At this stage, w e had nice ligamentous balance in 90 degrees of flexion with a 10-mm block as well. The tibia was completed for the size G. The femoral canal was cleaned x6 with saline, suctioned empt y, and then a bone plug was inserted. The knee was then articulated and extended with a G tibia, 10 articular surface and the 10 femur. With full knee extension, stable ligaments in extension, and stab le ligaments in 90 degrees of flexion. The patella was cut flat. It was measured for a 38. Three drill holes were made and these were unde rcut. A lateral release was not necessary. The leg was exsanguinated, the tourniquet elevated to 27 5. The knee was cleaned in extension with 2.5 L of pulse saline irrigation, carefully irrigating the gutters, patella, and around the tibia. The knee was then placed in flexion with retractors in plac e and all the bony surfaces were again cleaned with pulsed saline and then all surfaces were dried. The cement was mixed and the components were cemented into position, patella, followed by tibia, foll owed by femur. Each was impacted. Excess cement was removed and the knee was articulated and extende d during the final hardening. After hardening, the tourniquet was deflated. We checked posteriorly for retained cement and bleeding points. Careful hemostasis was checked and achieved. The pericapsu lar tissues were infiltrated with Marcaine 0.5% with epinephrine posteromedially, medially, and later ally. During closure, we irrigated the knee several times with saline irrigation. We did not think the drains were necessary. Hemostasis continued to be achieved as we closed. The quad mechanism terrance sed with interrupted #1 Vicryl in a [id number] fashion, the same with the medial retinaculum, mo re distally we used 0 Vicryl, 0 Vicryl was used on the deep bursa. Some prepatellar bursectomy was c ompleted during the closure where there were cords of scar tissue in the prepatellar bursa. The supe rficial subcu closed with interrupted 3-0 Polysorb. The skin was closed with sharmaine. The knee was flexed and extended several times during our closure, flexed well past 125 degrees and extended compl etely. After the sharmaine were applied, we washed and dried the knee, then covered with Betadine-soak ed Release, sterile gauze, sterile Webril, cryotherapy cuff, ABD pads, and a 6-inch Antony bandage loose ly applied. The foot pulse was 2+ at the end of the case and the patient was returned to the recover y room in stable and satisfactory condition, having tolerated the procedure very well. [id number]/[facility] #: [id number]
[2019-02-07] MEDS: Atorvastatin* 80 MG TAB PO SCH (22:05)
[2019-02-07] MEDS: Docusate CAP* 100 MG PO SCH (22:05)
[2019-02-07] MEDS: Aspirin TAB* 325 MG PO SCH (22:05)
[2019-02-07] MEDS: Lactated Ringers 1000 ML Bag* 1,000 ML IV SCH (23:29)
[2019-02-08] MEDS: Acetaminophen TAB* 325 MG PO SCH ×3 (04:07→21:34)
[2019-02-08] MEDS: traMADol TAB* 50 MG PO PRN ×4 (04:09→22:50)
[2019-02-08] MEDS: Ondansetron ODT TAB* 4 MG PO PRN (05:45)
[2019-02-08 06:02] LABS: Hematocrit 36 % (42-52); Hemoglobin 12.3 g/dL (14.0-18.0); Mean Platelet Volume 9.7 fL (7.4-10.4); Platelet Count 172 10^3/uL (150-450)
[2019-02-08 06:13] LABS: BUN/Creatinine Ratio 20.5 (8-20); EGFR African American 105.5 (>60); EGFR Non-African American 87.2 (>60); Potassium 4.4 mmol/L (3.5-5.0)
[2019-02-08] MEDS: Docusate CAP* 100 MG PO SCH ×2 (08:21→21:35)
[2019-02-08] MEDS: ceFAZolin 1 GM ADVAN(*) 1 GM in NS 0.9% 50 ML* 50 ML IVPB SCH (08:21)
[2019-02-08] MEDS ORDERED: Aspirin TAB* 325 MG PO SCH (09:00)
[2019-02-08] MEDS: Lactated Ringers 1000 ML Bag* 1,000 ML IV SCH (09:55)
--- NOTE | 2019-02-08 10:22 | PN ---
Progress Note - Progress Note Date of Service: 02/08/19 SOAP: Subjective: []Kuldip was seen today OOB in chair. He is feeling very well, denies CP, SOB, dizziness. Has mild nausea which has improved throughout the morning. Knee pain is well controlled. Objective: []General: Appears well, NAD LLE: left knee dressing CDI, thigh soft, able to straight leg raise, DF/PF intact, sensation intact to light touch distally, DP2+. Calves supple and nontender without erythema, edema or palpable cords Assessment: []POD 1 sp left total knee replacement Plan: []WBAT PT/OT Aspirin 325 mg daily for DVT prophylaxis H&H 12.3 Anticipate DC home tomorrow with VNS Vital Signs Temp 98.5 F 02/08/19 08:01 Pulse 65 02/08/19 08:01 Resp 18 02/08/19 09:57 BP 114/57 02/08/19 08:01 Pulse Ox 96 02/08/19 08:01 Intake & Output 02/07/19 02/08/19 02/08/19 18:59 06:59 18:59 Intake Total 1970 1780 1454 Output Total 1500 1000 Balance 871 268 0098 Intake: IV Fluids 1700 980 989 LR 980 989 lr 1700 IVPB 105 cefazolin 105 Oral 270 800 360 Output: Mejias 1500 1000 Other: # Bowel Movements 0 Laboratory Last Values Hgb 12.3 g/dL (14.0-18.0) L 02/08/19 05:30 Hct 36 % (42-52) L 02/08/19 05:30 Plt Count 172 10^3/uL (150-450) 02/08/19 05:30 MPV 9.7 fL (7.4-10.4) 02/08/19 05:30 Sodium 138 mmol/L (135-145) 02/08/19 05:30 Potassium 4.4 mmol/L (3.5-5.0) 02/08/19 05:30 Chloride 105 mmol/L (101-111) 02/08/19 05:30 Carbon Dioxide 28 mmol/L (22-32) 02/08/19 05:30 Anion Gap 5 mmol/L (2-11) 02/08/19 05:30 BUN 18 mg/dL (6-24) 02/08/19 05:30 Creatinine 0.88 mg/dL (0.67-1.17) 02/08/19 05:30 Est GFR ( Amer) 105.5 (>60) 02/08/19 05:30 Est GFR (Non-Af Amer) 87.2 (>60) 02/08/19 05:30 BUN/Creatinine Ratio 20.5 (8-20) H 02/08/19 05:30 Glucose 130 mg/dL (70-100) H 02/08/19 05:30 Calcium 9.0 mg/dL (8.6-10.3) 02/08/19 05:30
[2019-02-08] MEDS: Atorvastatin* 80 MG TAB PO SCH (21:35)
[2019-02-08] MEDS: Aspirin TAB* 325 MG PO SCH (21:35)
[2019-02-09] MEDS: Acetaminophen TAB* 325 MG PO SCH ×2 (04:24→13:14)
[2019-02-09] MEDS: traMADol TAB* 50 MG PO PRN ×2 (05:54→13:13)
[2019-02-09 06:20] LABS: Hematocrit 31 % (42-52); Hemoglobin 10.6 g/dL (14.0-18.0); Mean Platelet Volume 9.7 fL (7.4-10.4); Platelet Count 138 10^3/uL (150-450)
[2019-02-09] MEDS: Ondansetron ODT TAB* 4 MG PO PRN (06:27)
[2019-02-09] MEDS ORDERED: Magnesium Hydroxide LIQ* 30 ML UDC PO PRN (08:49)
[2019-02-09] MEDS ORDERED: Polyethylene Glycol 3350* 17 GM PACKET PO PRN (08:49)
[2019-02-09] MEDS ORDERED: Senna TAB PO PRN (08:49)
--- NOTE | 2019-02-09 08:49 | PN ---
Progress Note - Progress Note Date of Service: 02/09/19 SOAP: Subjective: []Patient was seen at bedside with Dr Meza this morning. His knee pain is well controlled. Denies CP, SOB, dizziness. He does feel nauseous, reports he has not had a bowel movement. Objective: []General: Appears well, NAD LLE: left knee dressing changed, incision is CDI without erythema or discharge, thigh soft, able to straight leg raise, DF/PF intact, sensation intact to light touch distally, DP2+. Calves supple and nontender without erythema or palpable cords, LLE with swelling Assessment: []POD 2 sp left total knee replacement Plan: []WBAT PT/OT Aspirin 325 mg daily for DVT prophylaxis H&H Anticipate DC home today with VNS Bowel med set ordered Vital Signs Temp 98.0 F 02/09/19 07:05 Pulse 62 02/09/19 07:05 Resp 16 02/09/19 07:08 BP 124/59 02/09/19 07:05 Pulse Ox 96 02/09/19 07:08 Intake & Output 02/08/19 02/09/19 02/09/19 18:59 06:59 18:59 Intake Total 2274 540 Output Total 900 500 0 Balance 1374 40 0 Intake: IV Fluids 989 LR 989 IVPB 105 cefazolin 105 Oral 1180 540 Output: Urine 900 500 0 Other: # Bowel Movements 0 Laboratory Last Values Hgb 10.6 g/dL (14.0-18.0) L 02/09/19 06:04 Hct 31 % (42-52) L 02/09/19 06:04 Plt Count 138 10^3/uL (150-450) L 02/09/19 06:04 MPV 9.7 fL (7.4-10.4) 02/09/19 06:04 Sodium 138 mmol/L (135-145) 02/08/19 05:30 Potassium 4.4 mmol/L (3.5-5.0) 02/08/19 05:30 Chloride 105 mmol/L (101-111) 02/08/19 05:30 Carbon Dioxide 28 mmol/L (22-32) 02/08/19 05:30 Anion Gap 5 mmol/L (2-11) 02/08/19 05:30 BUN 18 mg/dL (6-24) 02/08/19 05:30 Creatinine 0.88 mg/dL (0.67-1.17) 02/08/19 05:30 Est GFR ( Amer) 105.5 (>60) 02/08/19 05:30 Est GFR (Non-Af Amer) 87.2 (>60) 02/08/19 05:30 BUN/Creatinine Ratio 20.5 (8-20) H 02/08/19 05:30 Glucose 130 mg/dL (70-100) H 02/08/19 05:30 Calcium 9.0 mg/dL (8.6-10.3) 02/08/19 05:30
[2019-02-09] MEDS ORDERED: Docusate CAP* 100 MG PO SCH (09:00)
[2019-02-09] MEDS ORDERED: Magnesium Hydroxide LIQ* 30 ML UDC PO SCH (09:00)
--- NOTE | 2019-02-09 09:04 | DS ---
Orthopedic Discharge Summary - Discharge Summary Date of Admission:02/07/19 Date of Discharge: 02/09/19 Date of Surgery: 02/07/19 Attending Orthopedic Provider: Dr Meza Pre-operative Diagnosis: left knee osteoarthritis Operative Procedure: left total knee arthroplasty Disposition of Patient: home Condition of Patient: stable History: CHERY SALGADO is a 63 year old M with years of increasingly severe left knee pain. Patient has failed conservative management and has elected to undergo a left total knee replacement Hospital Course: CHERY was admitted to [facility] on 02/07/19. Patient underwent a left total knee replacement without complication followed by a brief recovery in PACU and transfer to the Short Stay Surgical Unit in stable condition. Our physical therapy and occupational therapy also participated in this patients care. Post-op day 1: patient was alert and in no acute distress. Dressing was clean, dry and intact. Operative extremity dorsiflexion and plantarflexion intact, sensation intact to light touch distally , DP2+. Post-op day two: dressing was changed, incision was clean, dry and intact. Patient was deemed to be medically and orthopedically stable for discharge. Physical therapy goals were met. Home Medications Medication Instructions Recorded Confirmed Type Ascorbic Acid TAB* [Vitamin C 500 mg PO QAM 06/11/14 02/07/19 History TAB*] Cholecalciferol (Vitamin D3) 2,000 unit PO QAM 06/11/14 02/07/19 History Vitamin D3 Ubidecarenone/Vit E Acet [Co Q-10 100 mg PO QAM 06/11/14 02/07/19 History 100 mg Softgel] Conesus-3/Dha/Epa/Fish Oil [Fish Oil 2,500 mg PO QAM 12/09/15 02/07/19 History 500 mg Softgel] Aspirin [Aspir-Low] 81 mg PO QAM 12/21/18 02/07/19 History Atorvastatin* [Lipitor 80 MG*] 80 mg PO BEDTIME 12/21/18 02/07/19 History Glucosamine Sulfate Dipot Chlr 1 tab PO QAM 12/21/18 02/07/19 History [Glucosamine] Naproxen Sodium [Aleve] 440 mg PO BID PRN 12/21/18 02/07/19 History Vitamin B Complex [Super B-50 1 tab PO QAM 01/24/19 02/07/19 History Complex] Acetaminophen TAB* [Tylenol TAB*] 975 mg PO Q8H tab 02/09/19 Rx Aspirin TAB* [Aspirin 325 MG TAB*] 325 mg PO 2000 #30 tab 02/09/19 Rx Docusate CAP* [Colace Cap*] 100 mg PO BID PRN #90 cap 02/09/19 Rx traMADol TAB* [Ultram*] 50 mg PO Q6H PRN #56 tab MDD 8 02/09/19 Rx Discharge Instructions following Orthopedic Surgery: Activity: * Weight Bearing as tolerated * Continue physical therapy and occupational therapy exercises as shown * Outpatient physical therapy Wound care: * OK to shower on post-op day 3, no bathing, swimming, or submerging wound. * Use gentle soap, pat dry. Cover with gauze, CANDY wrap or tape. Call Orthopedic office for: * Increased drainage * Redness * Increased pain * Fever Go to ER with shortness of breath or chest pain. Diet: * Regular diet * Increase fluids and fiber to prevent constipation. * Continue to use stool softeners, call office if no bowel motion within 48 hours. Medications See Home Medication List in your packet for medications that you should take after discharge. DVT Prophylaxis: Aspirin Dosin mg once a day for 30 days post op. Hold your aspirin 81 mg tab until this month of a larger dose is complete, then please resume aspirin 81 mg daily. Pain Control: Tramadol 50 mg 1 to 2 tabs every 6 hours as needed for pain, max 8 per day. Hold for sedation Antibiotics are required prior to any dental work. FOLLOW UP: Follow up with Dr. Meza within 4 weeks post op, call for appointment , call sooner with concerns Please call our office with any questions or concerns ([phone])
[2019-02-09] MEDS: Docusate CAP* 100 MG PO SCH (09:37)
[2019-02-09 11:25] VITALS: BP 120/56
[2019-02-09] MEDS ORDERED: Scopolamine 1.5 mg* PATCH TRANSDERM SCH (13:00)
== END 2019-02-09 14:40 | disposition home health service (06) | DRG 302 ==
LOC: AA 05:54 → SSU 11:26
PROVIDERS: ADMIT Orthopaedic Surgery; ATTEND Orthopaedic Surgery
PROC: 0SRD0J9 Replacement of Left Knee Joint with Synthetic Substitute, Cemented, Open Approach (ICD-10-PCS; principal; 2019-02-07 07:30)
DX: M17.12 Unilateral primary osteoarthritis, left knee (principal); M21.162 Varus deformity, not elsewhere classified, left knee; N40.0 Benign prostatic hyperplasia without lower urinary tract symptoms; M25.762 Osteophyte, left knee; I25.10 Atherosclerotic heart disease of native coronary artery without angina pectoris; E78.5 Hyperlipidemia, unspecified; G62.9 Polyneuropathy, unspecified; I10 Essential (primary) hypertension; Z96.651 Presence of right artificial knee joint; Z79.82 Long term (current) use of aspirin; Z95.5 Presence of coronary angioplasty implant and graft; Z87.442 Personal history of urinary calculi; Z82.49 Family history of ischemic heart disease and other diseases of the circulatory system; Z83.3 Family history of diabetes mellitus; Z82.61 Family history of arthritis; Z80.0 Family history of malignant neoplasm of digestive organs; Z98.42 Cataract extraction status, left eye; Z98.41 Cataract extraction status, right eye
CPT/HCPCS: 36415; 80048; 85014; 85018; 85049; A9270-GY; C1776; J0690; J1100; J2250; J2704; J2795; J3010; J3490